=== PATIENT | female | born 1960 | race Caucasian/White ===

== ENCOUNTER → 2016-08-20 | Outpatient (CLI) | payer BC ==
[2016-09-04 10:11] LABS: BABESIA BY PCR XXX; BABESIA IGG XXX; BABESIA IGM XXX
== END ==
LOC: COL.LAB 11:10
DX: A69.20 Lyme disease, unspecified (principal); R53.82 Chronic fatigue, unspecified; I95.1 Orthostatic hypotension; G90.9 Disorder of the autonomic nervous system, unspecified

== ENCOUNTER → 2018-08-26 | Outpatient (CLI) | payer BC | LOC: MC.RAD 08:30 | DX: Z12.31 Encounter for screening mammogram for malignant neoplasm of breast (principal); N63.10 Unspecified lump in the right breast, unspecified quadrant; N63.20 Unspecified lump in the left breast, unspecified quadrant ==

== ENCOUNTER → 2018-08-27 | Outpatient (CLI) | payer BC | LOC: MC.RAD 13:58 | DX: N60.01 Solitary cyst of right breast (principal); N60.02 Solitary cyst of left breast ==

== ENCOUNTER → 2019-01-05 | Outpatient (CLI) | payer BC | LOC: BHSO 09:17 | DX: F06.32 Mood disorder due to known physiological condition with major depressive-like episode (principal) | CPT/HCPCS: G0463 ==

== ENCOUNTER → 2019-02-03 | Outpatient (CLI) | payer BC | LOC: BHSO 09:49 | DX: F06.32 Mood disorder due to known physiological condition with major depressive-like episode (principal) | CPT/HCPCS: G0463 ==

== ENCOUNTER 2019-07-20 20:13 | Emergency (ER) | payer BC ==
[~2019-07-20] VITALS: Ht 172.7 cm; Wt 69.1 kg
[2019-07-20 20:19] VITALS: BP 130/94; TEMP 97.4
[2019-07-20] MEDS ORDERED: SINGULAIR 110 MG/TAB PO (20:22)
[2019-07-20] MEDS ORDERED: CLARINEX 5MG5 MG PO (20:22)
[2019-07-20] MEDS ORDERED: LAMICTAL150 MG PO (20:22)
[2019-07-20] MEDS ORDERED: CATAPRES 0.1MG0.1 MG PO (20:23)
[2019-07-20] MEDS ORDERED: MESTINON 6060 MG/TAB PO (20:23)
[2019-07-20] MEDS ORDERED: DESYREL 50MG50 MG PO (20:23)
[2019-07-20] MEDS ORDERED: SYNTHROID 0.0.025 MG PO (20:23)
[2019-07-20] MEDS ORDERED: WELLBUTRIN XL300 M1 PO (20:23)
[2019-07-20] MEDS ORDERED: ENDOMETRIN100 MG VG (20:24)
[2019-07-20] MEDS ORDERED: REVIA 50MG TABL50 MG PO (20:24)
[2019-07-20] MEDS ORDERED: ATARAX 25MG25 MG/TAB PO (20:24)
[2019-07-20] MEDS ORDERED: [UNRECOGNIZED DRUG - OTHER] IV (20:25)
[2019-07-20 21:56] VITALS: PULSE 99
== END 2019-07-20 21:56 | disposition home or self-care (01) ==
LOC: COL.ER 20:13
DX: K56.41 Fecal impaction (principal)

== ENCOUNTER → 2019-10-28 | Outpatient (CLI) | payer BC ==
[~2019-10-28] MED LIST: ATARAX 25MG25 MG/TAB PO; CATAPRES 0.1MG0.1 MG PO; CLARINEX 5MG5 MG PO; DESYREL 50MG50 MG PO; ENDOMETRIN100 MG VG; LAMICTAL150 MG PO; MESTINON 6060 MG/TAB PO; REVIA 50MG TABL50 MG PO; SINGULAIR 110 MG/TAB PO; SYNTHROID 0.0.025 MG PO; WELLBUTRIN XL300 M1 PO; [UNRECOGNIZED DRUG - OTHER] IV
== END ==
LOC: COL.RAD 10:13
DX: N18.9 Chronic kidney disease, unspecified (principal)

== ENCOUNTER → 2019-12-15 | Outpatient (CLI) | payer BC | LOC: MC.RAD 11:24 | DX: Z12.31 Encounter for screening mammogram for malignant neoplasm of breast (principal) ==

== ENCOUNTER 2020-02-23 12:09 | Emergency (ER) | payer BC ==
[~2020-02-23] VITALS: Ht 172.7 cm; Wt 69.1 kg
[2020-02-23 12:42] VITALS: TEMP 98.7
[2020-02-23 15:13] VITALS: BP 121/70; PULSE 71
== END 2020-02-23 15:14 | disposition home or self-care (01) ==
LOC: COL.ER 12:09
DX: K56.41 Fecal impaction (principal); E03.9 Hypothyroidism, unspecified; Z79.890 Hormone replacement therapy

== ENCOUNTER 2020-05-13 11:08 | Emergency (ER) | payer BC ==
[~2020-05-13] VITALS: Ht 172.7 cm; Wt 64.9 kg
[2020-05-13 11:13] VITALS: TEMP 98.3
[2020-05-13 13:45] VITALS: BP 105/86; PULSE 66
== END 2020-05-13 13:48 | disposition home or self-care (01) ==
LOC: COL.ER 11:08
DX: K56.41 Fecal impaction (principal); Z79.890 Hormone replacement therapy

== ENCOUNTER → 2022-02-27 | Outpatient (CLI) | payer BC | LOC: MC.RAD 10:14 | DX: Z12.31 Encounter for screening mammogram for malignant neoplasm of breast (principal) ==

== ENCOUNTER → 2023-11-19 | Outpatient (CLI) | payer BC | LOC: MC.RAD 11:00 | DX: Z12.31 Encounter for screening mammogram for malignant neoplasm of breast (principal); R92.1 Mammographic calcification found on diagnostic imaging of breast ==

== ENCOUNTER → 2023-12-04 | Outpatient (CLI) | payer BC | LOC: MC.RAD 13:53 | DX: R92.0 Mammographic microcalcification found on diagnostic imaging of breast (principal) ==